=== PATIENT | female | born 1995 | race Caucasian/White ===

== ENCOUNTER 2019-09-08 07:39 | Inpatient (IN) | payer OTHER ==
[~2019-09-08] VITALS: Ht 160 cm; Wt 67.1 kg
[~2019-09-08 07:39] MED LIST: ACET325T33 PO; IBUP800T48 PO; PREN1TAB13 PO
[2019-09-08 08:11] VITALS: Ht 160 cm; Wt 67.1 kg
[2019-09-08 08:13] VITALS: BP 127/85; PULSE 67; RESP 20
[2019-09-08] MEDS ORDERED: LACTATED RINGER'S 1,000 ML IV SCH ×3 (09:30→20:27)
[2019-09-08] MEDS ORDERED: LACTATED RINGER'S 1,000 ML IV ONE ×2 (11:00→15:53)
[2019-09-08] MEDS ORDERED: AZITHROMYCIN 500MG/NS (PMX) 250 ML IVPB ONE (11:00)
[2019-09-08] MEDS ORDERED: METHYLERGONOVINE 0.2 MG INJ IM PRN ×2 (11:00→20:30)
[2019-09-08] MEDS ORDERED: OXYTOCIN 30 UNITS/LR 500 ML IV PRN ×2 (11:00→20:30)
[2019-09-08] MEDS ORDERED: CARBOPROST 250 MCG INJ IM PRN ×2 (11:00→20:30)
[2019-09-08] MEDS ORDERED: CEFAZOLIN 2 GM/50 ML (PMX) 50 ML IVPB SCH (11:00)
[2019-09-08] MEDS ORDERED: MISOPROSTOL 200 MCG TAB PR PRN ×2 (11:00→20:30)
[2019-09-08] MEDS ORDERED: morphine SULFATE/PF (10 MG/10 ML) INJ ONE (15:17)
[2019-09-08] MEDS ORDERED: OXYTOCIN 10 UNIT INJ ONE (15:47)
[2019-09-08] MEDS ORDERED: MIDAZOLAM 1 MG/ML 2 ML INJ ONE (15:49)
[2019-09-08] MEDS ORDERED: HYDROmorphONE 0.5 MG/0.5 ML SYG IV PRN ×3 (16:00→21:00)
[2019-09-08] MEDS ORDERED: DIPHENHYDRAMINE 50 MG INJ IV PRN ×2 (16:00)
[2019-09-08] MEDS ORDERED: ONDANSETRON 4 MG INJ IV PRN (16:00)
[2019-09-08] MEDS ORDERED: MIDAZOLAM 1 MG/ML 2 ML INJ IV PRN (16:00)
[2019-09-08] MEDS ORDERED: MEPERIDINE 25 MG INJ IV PRN (16:00)
[2019-09-08] MEDS ORDERED: ZOLPIDEM 5 MG TAB PO PRN (16:00)
[2019-09-08] MEDS ORDERED: NALBUPHINE HCL (10 MG/1 ML) INJ IV PRN (16:00)
[2019-09-08] MEDS ORDERED: EPHEDrine 25 MG/5 ML SYG IV PRN (16:00)
[2019-09-08] MEDS ORDERED: NALOXONE (0.4 MG/ML) INJ IV PRN (16:00)
[2019-09-08] MEDS ORDERED: KETOROLAC 30 MG INJ IV PRN (16:00)
[2019-09-08] MEDS ORDERED: EPHEDrine 25 MG/5 ML SYG ONE (16:23)
[2019-09-08] MEDS ORDERED: ONDANSETRON 4 MG INJ ONE (16:23)
[2019-09-08] MEDS ORDERED: PHENYLephrine 10 MG INJ ONE (16:23)
[2019-09-08] MEDS ORDERED: OXYTOCIN 30 UNITS/LR 500 ML IV ONE (16:23)
[2019-09-08] MEDS ORDERED: KETOROLAC 30 MG INJ ONE (16:34)
[2019-09-08] MEDS ORDERED: ACETAMINOPHEN 500 MG TAB PO STA (16:42)
[2019-09-08] MEDS ORDERED: KETOROLAC 30 MG INJ IV STA (16:42)
[2019-09-08 19:20] VITALS: BP 118/72; PULSE 65; RESP 20
[2019-09-08] MEDS ORDERED: LANOLIN HPA 1 PKT TOP PRN (20:30)
[2019-09-08] MEDS ORDERED: NA PHOSPHATE/BIPHOS 133 ML ENEMA PR PRN (20:30)
[2019-09-08] MEDS ORDERED: OXYCODONE/ACETAMINOPHEN (5/325) TAB PO PRN (20:30)
[2019-09-08] MEDS ORDERED: HYDROCODONE/APAP (5/325) TAB PO PRN (20:30)
[2019-09-08] MEDS: CEFAZOLIN 2 GM/50 ML (PMX) 50 ML IVPB SCH (23:08)
[2019-09-08] MEDS: SENNA/DOCUSATE NA (8.6MG/50MG) TAB PO SCH (23:11)
[2019-09-08] MEDS: CLINDAMYCIN 300 MG CAP PO SCH (23:56)
[2019-09-09 04:34] VITALS: BP 114/72; PULSE 78; RESP 20
[2019-09-09] MEDS: CLINDAMYCIN 300 MG CAP PO SCH ×4 (06:10→23:40)
[2019-09-09] MEDS: CEFAZOLIN 2 GM/50 ML (PMX) 50 ML IVPB SCH ×2 (07:58→16:41)
[2019-09-09 08:00] VITALS: BP 117/76; PULSE 75; RESP 16
[2019-09-09] MEDS: SENNA/DOCUSATE NA (8.6MG/50MG) TAB PO SCH ×2 (09:40→22:41)
[2019-09-09] MEDS ORDERED: BISACODYL 10 MG SUPP PR ONE (10:00)
[2019-09-09 12:00] VITALS: BP 115/74; PULSE 85; RESP 16
[2019-09-09] MEDS: IBUPROFEN 800 MG TAB PO SCH ×2 (14:00→22:42)
[2019-09-09 16:00] VITALS: BP 121/86; PULSE 70; RESP 16
[2019-09-09 20:00] VITALS: BP 118/70; PULSE 101; RESP 18
[2019-09-10 03:18] VITALS: BP 114/79; PULSE 86; RESP 20
[2019-09-10] MEDS: CLINDAMYCIN 300 MG CAP PO SCH ×4 (05:51→23:43)
[2019-09-10] MEDS: IBUPROFEN 800 MG TAB PO SCH ×4 (05:51→23:40)
[2019-09-10 08:00] VITALS: BP 119/81; PULSE 74; RESP 18
[2019-09-10] MEDS: SENNA/DOCUSATE NA (8.6MG/50MG) TAB PO SCH ×2 (08:36→21:00)
[2019-09-10 15:55] VITALS: BP 124/84; PULSE 67; RESP 18
[2019-09-10] MEDS ORDERED: ACETAMINOPHEN 325 MG TAB PO PRN (16:30)
[2019-09-10 19:40] VITALS: BP 122/82; PULSE 85; RESP 19
[2019-09-11 03:52] VITALS: BP 131/84; PULSE 83; RESP 19
[2019-09-11] MEDS: IBUPROFEN 800 MG TAB PO SCH (05:32)
[2019-09-11] MEDS: CLINDAMYCIN 300 MG CAP PO SCH ×2 (05:33→12:00)
[2019-09-11 08:00] VITALS: BP 121/77; PULSE 80; RESP 18
[2019-09-11] MEDS: SENNA/DOCUSATE NA (8.6MG/50MG) TAB PO SCH (08:35)
[2019-09-11] MEDS ORDERED: DIPHTH/TET/ACEL PERTUSS (ADULT) 0.5 ML VIAL IM* ONE (09:00)
[2019-09-11] MEDS ORDERED: MEASLES,MUMPS,RUBELLA VACCINE INJ SC* ONE (09:00)
== END 2019-09-11 12:54 | disposition home or self-care (01) | DRG 785 ==
LOC: L-D 07:39 → OBT 07:39 → L-D 10:50 → OBT 10:50 → L-D 15:05 → MS1 20:08 → PP1 09-09 16:07
PROVIDERS: ADMIT Obstetrics & Gynecology; ATTEND Obstetrics & Gynecology
PROC: 0UB70ZZ Excision of Bilateral Fallopian Tubes, Open Approach (ICD-10-PCS; 2019-09-08)
PROC: 4A1HXCZ Monitoring of Products of Conception, Cardiac Rate, External Approach (ICD-10-PCS; 2019-09-08)
PROC: 10D00Z1 Extraction of Products of Conception, Low, Open Approach (ICD-10-PCS; principal; 2019-09-08 13:00)
DX: O34.219 Maternal care for unspecified type scar from previous cesarean delivery (principal); Z37.0 Single live birth; Z3A.37 37 weeks gestation of pregnancy
CPT/HCPCS: 76818; 81001; 81003; 84112; 85025; 85610; 85730; 86592; 86850; 86900; 86901; 87340; 99464; G0463; J0456; J0690; J1170; J1885; J2250; J2274; J2370; J2405; J2590; J7120